=== PATIENT | female | born 1955 | race Two or more races ===

== ENCOUNTER 2018-02-12 10:46 | Emergency (ER) | payer OTHER ==
[~2018-02-12] VITALS: Ht 162.6 cm; Wt 73.0 kg
[2018-02-12] MEDS ORDERED: Amlodipine PO (11:19)
[2018-02-12 11:59] VITALS: BP 126/53
[2018-02-12] MEDS ORDERED: HYDROcodone/APAP 5/325 TABLET PO ONE (12:30)
[2018-02-12] MEDS ORDERED: HYDROcodone/APAP 5/325 TABLET ONE (12:35)
== END 2018-02-12 12:49 | disposition home or self-care (01) ==
LOC: ED 12:43
DX: M25.462 Effusion, left knee (principal); I10 Essential (primary) hypertension; F32.9 Major depressive disorder, single episode, unspecified; F41.1 Generalized anxiety disorder; W19.XXXA Unspecified fall, initial encounter; Y93.89 Activity, other specified; Y92.69 Other specified industrial and construction area as the place of occurrence of the external cause; Y99.0 Civilian activity done for income or pay
CPT/HCPCS: 29505; 70160; 99283